=== PATIENT | female | born 1980 | race Caucasian/White ===

== ENCOUNTER 2024-08-21 08:01 | Emergency (ER) | payer OTHER, SELFPAY ==
[2024-08-21 08:04] VITALS: BP 96/62; PULSE 50; TEMP 36.8; O2SAT 98; BMI 29.1
--- NOTE | 2024-08-21 08:21 | CT_ITS ---
The [address] [address] Patient Name: TONG CORONADO MRN: [id number] date: 1980 Sex: F Assigned Patient Location: ER Current Patient Location: ER Accession/Order Number: [id number] Exam Date: 08/21/2024 10:16 Report Date: 08/21/2024 10:19 At the request of: JUAN PABLO CHOU MD Procedure: CT lumbar spine wo con CT lumbar spine wo con 08/21/2024 9:09 AM History:Low back pain after falling [place] with left lower extremity radiculopathy TECHNIQUE: Multi detector CT axial slices of the lumbar spine were obtained without IV contrast. Volumetric acquisition sagittal, coronal, and 3-D reconstructions were performed and reviewed on a separate workstation. CT was performed with one or more of the following dose reduction techniques: Automated exposure control, adjustment of the mA and/or kV according to patient size, or use of iterative reconstruction technique. COMPARISON: None FINDINGS: There is preservation of the vertebral body heights. There is mild disc height loss with a broad-based disc bulge at L5-S1 contributing to mild bilateral neural foraminal narrowing and mild spinal canal stenosis. No fractures or dislocations are seen. The alignment of the lumbar spine is normal. The paraspinous soft tissues are within normal limits. The visualized lung parenchyma is unremarkable. The visualized abdominal and pelvic viscera is unremarkable. CT/CT lumbar spine wo con IMPRESSION: No acute bony abnormality or malalignment. There is mild disc height loss with a broad-based disc bulge at L5-S1 contributing to mild bilateral neural foraminal narrowing and mild spinal canal stenosis. Impression dictated by: Nguyễn Veras M.D. 08/21/2024 10:19 AM Dictation Location[id number] Electronically authenticated by: [id number] Y Date: 08/21/2024 10:19
[2024-08-21] MEDS: KETOROLAC TROMETHAMINE 30 MG/ML VIAL IVP (08:27)
[2024-08-21] MEDS: ORPHENADRINE 60 MG/2 ML VIAL IV (08:27)
[2024-08-21] MEDS: METHYLPREDNISOLONE SOD SUCC PF 40 MG/ML VIAL IVP (08:27)
[2024-08-21] MEDS: 0.9 % SODIUM CHLORIDE 1,000 ML 500 ML IV (08:28)
[2024-08-21 08:43] LABS: Hematocrit 44.6 % (36.0-48.0); Hemoglobin 15.1 g/dL (12.0-16.0); Immature Granulocytes Abs Auto 0.02 10^3/uL (0.00-0.03); Immature Granulocytes Pct Auto 0.3 % (0.0-0.5); Lymphocytes Absolute Auto 1.5 10^3/uL (1.2-3.8); Mean Corpuscular HGB Conc 33.9 g/dL (29.9-35.2); Mean Corpuscular Hemoglobin 31.3 pg (26.7-34.0); Mean Corpuscular Volume 92.5 fL (81.0-99.0); Platelet Count 238 10^3/uL (150-450); Red Blood Count 4.82 10^6/uL (4.20-5.40); White Blood Count 7.6 10^3/uL (4.0-11.0)
[2024-08-21 09:00] LABS: Alanine Aminotransferase 28 U/L (14-59); Albumin Level 3.8 g/dL (3.4-5.0); Alkaline Phosphatase 59 U/L (46-116); Anion Gap 15.8; Aspartate Amino Transferase 19 U/L (15-37); Blood Urea Nitrogen 12.0 mg/dL (7.0-18.0); Calcium 9.0 mg/dL (8.5-10.1); Carbon Dioxide 25.3 mmol/L (21.0-32.0); Chloride 107 mmol/L (98-107); Estimated GFR (African America >60 (>=60 mL/min/1.73m^2); Estimated GFR (Non-African Ame >60 (>=60 mL/min/1.73m^2); Glucose 95 mg/dL (74-106); Potassium 4.1 mmol/L (3.5-5.1); Sodium 144 mmol/L (136-145); Total Protein 7.6 g/dL (6.4-8.2)
[2024-08-21 09:01] LABS: Albumin Globulin Ratio 1.0; Globulin 3.8 g/dL
[2024-08-21 09:31] VITALS: BP 104/57; PULSE 54; O2SAT 98
[2024-08-21] MEDS: DIAZEPAM 2 MG TABLET PO (09:51)
--- NOTE | 2024-08-21 10:35 | ED_ITS ---
HPI HPI - General Adult General Chief complaint: Back Pain/Injury Stated complaint: SCIATICA PAIN Time Seen by Provider: 08/21/24 08:09 Source: patient Mode of arrival: walk-in Limitations: no limitations History of Present Illness HPI narrative: Patient does not have any significant back pain history is coming to the ER after she has been having some back pain that is significant for the last few days, according to her she had no fall but she was doing some yard work few days ago and after that she started having more pain in her back, pain radiate to both legs there is no incontinence of urine or stool The patient mentioned also that she had a shower that she thought would help her symptoms on Thursday but she fell forward in the shower and that made her pain worse. She feels that she is having a spasm in the back and she needs help to get out of the car when arriving to the ER Related Data Previous Rx's ?Medication ?Instructions ?Recorded diclofenac sodium 75 mg 75 mg PO BID PRN pain #20 ta bs 08/21/24 tablet,delayed release orphenadrine citrate 100 mg 100 mg PO BID PRN muscle s pasm #20 08/21/24 tablet,extended release tabs prednisone 20 mg tablet 40 mg (2 x 20 mg) PO DAILY 5 days 08/21/24 #10 tabs Allergies Allergy/AdvReac Type Severity Reaction Status Date / Time Penicillins Allergy Severe Anaphylaxis Verified 08/21/24 08:04 ciprofloxacin (From Cipro) Allergy Mild itch Verified 08/21/24 08:04 Opioid HPI Opioid Management Most Recent Opioid Data: Last Pain Scale 6 Today, 08:46 Last ED Pain Assessment Today, 08:46 Last MAR Pain Assessment Today, 08:27 Review of Systems ROS Status of ROS 10 or more systems reviewed and unremark able except as noted in history and below PFSH PFSH Social History Little interest or pleasure in doing things: not at all Feeling down, depressed, or hopeless: not at all Exam Narrative Exam Narrative: Nurses notes and vital signs reviewed and patient is not hypoxic. General: Well-appearing and in no apparent distress. Skin: Warm, dry, no pallor noted. No rash. Head: Normocephalic, atraumatic. Neck: Supple, non-tender. Cardiovascular: Regular Rate and Rhythm without murmur, gallop or rub. Respiratory: No accessory muscle use or respiratory distress. Lungs are clear to auscultation, no wheezing, rales or rhonchi Chest Wall: no tenderness Back: There is intervertebral line tenderness at the mid lumbar spine as well as paraspinal muscle tenderness and sacral level tenderness as well Musculoskeletal: normal ROM, no calf or popliteal tenderness, no lower extremity edema/swelling GI: Abdomen is soft, non-distended. Normal bowel sounds. No masses appreciated. No tenderness to palpation. No rebound, guarding, or rigidity noted. Neurological: A&O x4. No cranial nerve dysfunction observed. . Constitutional Vital Signs, click to edit/add: Last Vital Signs Temp 98.2 F 08/21/24 08:04 Pulse 54 L 08/21/24 09:31 Resp 18 08/21/24 09:31 BP 104/57 08/21/24 09:31 Pulse Ox 98 08/21/24 09:31 O2 Del Method Room Air 08/21/24 08:04 Course Vital Signs Vital signs: Vital Signs Temperature 98.2 F 08/21/24 08:04 Pulse Rate 50 L 08/21/24 08:04 Respiratory Rate 20 08/21/24 08:04 Blood Pressure 96/62 08/21/24 08:04 Pulse Oximetry 98 08/21/24 08:04 Oxygen Delivery Method Room Air 08/21/24 08:04 Temperature 98.2 F 08/21/24 08:04 Pulse Rate 54 L 08/21/24 09:31 Respiratory Rate 18 08/21/24 09:31 Blood Pressure 104/57 08/21/24 09:31 Pulse Oximetry 98 08/21/24 09:31 Oxygen Delivery Method Room Air 08/21/24 08:04 Medical Decision Making [facility] Narrative Medical decision making narrative: The patient was presented to us with significant pain but no weakness or alarming symptoms The patient CT of the lumbar spine showed no acute significant pathology and she was feeling better after she was treated with Toradol steroid and Norflex The patient also treated with Valium 1 dose in the ER to help with the muscle spasm CBC and chemistry showed no acute pathology The patient was discharged home with the Voltaren and Norflex and prednisone with referred to her primary care The patient is to follow up with primary care physician in next 2-3 days or to return to the emergency department should any of the signs or symptoms worsen or new symptoms develop. The patient agrees with the following Diagnosis and Treatment plan and the patient will be discharged home. Lab Data Labs: Lab Results 08/21/24 Range/Units 08:14 WBC 7.6 (4.0-11.0) 10^3/uL RBC 4.82 (4.20-5.40) 10^6/uL Hgb 15.1 (12.0-16.0) g/dL Hct 44.6 (36.0-48.0) % MCV 92.5 (81.0-99.0) fL MCH 31.3 (26.7-34.0) pg MCHC 33.9 (29.9-35.2) g/dL RDW 13.1 (11.0-15.0) % Plt Count 238 (150-450) 10^3/uL MPV 10.1 (9.5-13.5) fL Neut % (Auto) 69.9 (43.0-75.0) % Lymph % (Auto) 19.7 L (20.5-60.0) % [place] % (Auto) 7.7 (1.7-12.0) % Eos % (Auto) 1.5 (0.9-7.0) % Baso % (Auto) 0.9 (0.2-2.0) % Neut # (Auto) 5.3 (1.4-6.5) 10^3/uL Lymph # (Auto) 1.5 (1.2-3.8) 10^3/uL [place] # (Auto) 0.6 (0.3-0.8) 10^3/uL Eos # (Auto) 0.1 (0.0-0.7) 10^3/uL Baso # (Auto) 0.1 (0.0-0.1) 10^3/uL Abs Immat Gran (auto) 0.02 (0.00-0.03) 10^3/uL Imm/Tot Granulo (auto) 0.3 (0.0-0.5) % Sodium 144 (136-145) mmol/L Potassium 4.1 (3.5-5.1) mmol/L Chloride 107 (98-107) mmol/L Carbon Dioxide 25.3 (21.0-32.0) mmol/L Anion Gap 15.8 BUN 12.0 (7.0-18.0) mg/dL Creatinine 0.83 (0.55-1.02) mg/dL Est GFR ( Amer) >60 (>=60 mL/min/1.73m^2) Est GFR (Non-Af Amer) >60 (>=60 mL/min/1.73m^2) BUN/Creatinine Ratio 14.5 Glucose 95 (74-106) mg/dL Calcium 9.0 (8.5-10.1) mg/dL Total Bilirubin 0.5 (0.2-1.0) mg/dL AST 19 (15-37) U/L ALT 28 (14-59) U/L Alkaline Phosphatase 59 (46-116) U/L Total Protein 7.6 (6.4-8.2) g/dL Albumin 3.8 (3.4-5.0) g/dL Globulin 3.8 g/dL Albumin/Globulin Ratio 1.0 Serum HCG, Qual Negative (NEGATIVE) Discharge Plan Discharge Chief Complaint: Back Pain/Injury Clinical Impression: Strain of lumbar region Patient Disposition: Home, Self-Care Time of Disposition Decision: 10:35 Condition: Good Prescriptions / Home Meds: New diclofenac sodium 75 mg tablet,delayed release (DR/EC) 75 mg PO BID PRN (Reason: pain) Qty: 20 0RF prednisone 20 mg tablet 40 mg PO DAILY 5 Days Qty: 10 0RF orphenadrine citrate 100 mg tablet extended release 100 mg PO BID PRN (Reason: muscle spasm) Qty: 20 0RF Print Language: Kosovan Instructions: Low Back Strain (ED), Back Pain (ED) Referrals: NOVA DONOVAN [Primary Care Provider, Family Practice] - 1 week Discharge Date/Time: 08/21/24 10:57
== END 2024-08-21 10:57 | disposition home or self-care (01) ==
PROVIDERS: Emergency Provider Emergency Medicine; PCP Family Medicine
DX: S39.012A Strain of muscle, fascia and tendon of lower back, initial encounter (principal); X58.XXXA Exposure to other specified factors, initial encounter
CPT/HCPCS: 36415; 72131; 80053; 84703; 85025; 96374; 96375; 99285; J1885; J2360; J2919